=== PATIENT | male | born 1975 | race Caucasian/White ===

== ENCOUNTER 2018-05-14 11:22 | Emergency (ER) | payer OTHER, SELFPAY ==
[2018-05-14] VITALS (24 sets, daily range): BP systolic 132–186; BP diastolic 64–98; PULSE 69–110; RESP 8–16; TEMP 37; O2SAT 95–99
--- NOTE | 2018-05-14 11:34 | ED.GENADUL_ITS ---
Discharge Plan Disposition Patient Disposition: HOME Condition: Stable Discharge Details Chief Complaint: HeadInjury Clinical Impression: Concussion, Fall, Contusion of multiple sites Primary Care Provider: Unknown,Unknown ED Provider: Chantale Heredia Home Meds and New Rx's Prescriptions: Continued Vyvanse 40 mg Capsule 40 mg PO DAILY RF: 0 Discharge Instructions Instructions: Concussion (ED), Contusion in Adults (ED), Fall Prevention (ED) Additional Instructions: Please return immediately to the emergency department if you develop any new or worsening symptoms or if you become otherwise concerned. It is extremely important that you make an appointment to be seen in follow-up for this visit as soon as possible by your primary care doctor. Discharge Data Discharge Date/Time-TO BE ENTERED AT DEPARTURE: 05/14/18 14:43 Medical Decision Making Christopher Robret is a 42-year-old man with history of ADD presenting to the emergency department with altered mental status after slipping on ice and hitting his head. On exam patient is well and nontoxic appearing. He is oriented but seems to have memory changes, unclear how long he has been in [place] on vacation. Otherwise neurologically nonfocal. Neck is nontender to palpation. Concern for acute intracranial process versus concussion. Plan for CT head, C-spine. CT head and neck report is negative per radiology. On reassessment, patient complaining of pain in both clavicles, worse on the left. He reports that movement of his arms causes sharp pain in his distal clavicles bilaterally. Patient also reports some pain in his posterior left shoulder. He reports pain in the back of his head where it struck the ground. He denies any other pain. He denies any weakness. He reports that he had some tingling in bilateral forearms on the drive here, but denies any numbness or tingling at this time. On exam patient has exquisite tenderness palpation over bilateral clavicles, worse on the left, wincing with light touch to the skin. Patient has same level of exquisite tenderness to palpation diffusely over the left scapula. There are no skin signs of trauma or deformity, no crepitus in these areas. Left humerus is nontender to palpation. Patient is able to range bilateral shoulders, however pain is increased by movement of left upper extremity. Radial pulses are intact and symmetric bilaterally. Mechanism of injury atypical for clavicle fracture, however given patient level of reported pain, plan for x-ray bilateral clavicles and left scapula. Exam/history is not consistent with central cord syndrome, other cord compression, other acute emergent thoraco-abdominal or extremity trauma. X-rays bilateral clavicles and left scapula negative, interpreted by myself in conjunction with radiology. Patient reports feeling improved. Walking about the emergency department without issue. At this time no further evaluation ind icated. I had a lengthy discussion with the patient regarding return to emergency department precautions, home care, and importance of outpatient follow-up with his primary care doctor. Patient verbalizes understanding of the plan and is amenable. Medical Records Medical records reviewed: Yes I reviewed the patient's medical records. HPI General Mode of arrival: ambulatory . Date/Time Provider Initiated Documentation: 05/14/18 11:32 . Limitations to Documentation: no limitations . Information obtained by: patient, family, RN notes reviewed and old records reviewed . HPI Narrative: Christopher Robert is a 42 y/o man with history of ADD presenting to the emergency department with head injury. Patient is accompanied by his who also provides a history. They report the patient was walking on ice when he slipped backwards, hitting the back of his head on the ground. His reports that she thinks he was unconscious for a few seconds. Fall occurred approximately 30 minutes ago. reports that patient been repeating questions and not acting quite himself since the fall. Patient reporting pain in both arms and sensation of d?j? vu. He denies headache or neck pain. Had some nausea without vomiting. No visual changes. No weakness. Was previously in his usual state of health. No presyncopal type symptoms. No recent illness. Arrived in [place] for vacation yesterday. Related Data Home Medications Medication Instructions Recorded Confirmed Vyvanse 40 mg PO DAILY 05/14/18 05/14/18 Allergies Allergy/AdvReac Type Severity Reaction Status Date / Time arrow root Allergy Uncoded 05/14/18 11:36 Review of Systems Review of Systems Constitutional: denies fevers Eyes: denies eye pain, visual changes ENT: denies facial pain, dental pain, sore throat Cardiovascular: denies chest pain, edema Respiratory: denies SOB, cough GI: denies abdominal pain, vomiting, diarrhea, reports nausea : denies flank pain MSK: denies back pain, neck pain, reports bilateral shoulder pain Skin: denies rash Neuro: denies headaches, weakness PFSH Social History Smoking and Tabacco status: Never Exam Narrative Exam Narrative: Constitutional: well and [id number], pleasant, appears anxious but otherwise conversing normally HENT: head atraumatic/normocephalic/normal inspection, mucous membranes moist Eyes: conjunctiva normal, sclera normal, pupils 3mm b/l ERRLA, EOMI Neck: no stridor, normal ROM, trachea midline, no vertebral or paraspinal tenderness to palpation Chest: normal inspection, no tenderness to palpation Resp: normal work of breathing, LCTAB Cardio: normal rate, normal rhythm, no murmur appreciated GI: Abdomen soft, nontender to palpation, no distention Back: normal inspection, no rash, no bony tenderness to palpation, no skin signs of trauma Skin: warm, dry, normal color, no rash Neuro: alert, asking family members repeatedly how long they have been in [place] for but oriented, CNs2-12 intact, motor 5/5 throughout, normal tone Ext: no edema, no skin signs of trauma to the upper extremities, ranging arms normally, no deformity of the upper extremities, radial pulses intact and symmetric Psych: anxious mood, normal affect
--- NOTE | 2018-05-14 11:36 | DI.CT_ITS ---
SYMPTOMS/DIAGNOSIS: ALTERED MENTAL STATUS AND BILATERAL PAIN DOWN NECK INTO SHOULDERS S/P TRAUMA, FALL CT BRAIN: Noncontrast examination was performed. There are no priors for comparison. The moe-white matter differentiation is well maintained. The ventricles are intact. The basilar cisterns are patent. No acute infarct, intracranial hemorrhage, midline shift or mass effect is identified. The visualized paranasal sinuses are clear. The mastoid air cells are well pneumatized. The calvarium is intact. No evidence of an acute fracture is seen. There is a subcutaneous hematoma overlying the posterior left parietal bone. IMPRESSION: 1. No acute intracranial process. 2. Small left posterior parietal scalp hematoma. CT SCAN OF THE CERVICAL SPINE: Multiple contiguous axial images of the cervical spine were obtained. Sagittal and coronal reformatted images were evaluated on the [employer] workstation. There is straightening of the normal cervical lordosis. This may be due to muscle spasm of patient positioning. No acute fracture or subluxation is seen. There is no significant prevertebral soft tissue swelling. The lung apices appear clear. IMPRESSION: No acute fracture or subluxation of the cervical spine. The findings were discussed with Dr. Chantale Heredia of the Emergency Department on the date of the examination.
--- NOTE | 2018-05-14 13:08 | DI.RAD_ITS ---
SYMPTOMS/DIAGNOSIS: TRAUMA, CLAVICLE AND SCAPULA PAIN RIGHT CLAVICLE: Two views. No acute fracture or dislocation is identified. LEFT SCAPULA: Three views. No acute fracture or dislocation is identified. LEFT CLAVICLE: Two views. No acute fracture or dislocation is identified.
[2018-05-14] MEDS: Ibuprofen 600 MG TAB PO (14:26)
== END 2018-05-14 14:43 | disposition home or self-care (01) ==
LOC: ER 14:29
PROVIDERS: Emergency Provider Student in an Organized Health Care Education/Training Program
DX: S06.0X0A Concussion without loss of consciousness, initial encounter (principal); S40.012A Contusion of left shoulder, initial encounter; S40.011A Contusion of right shoulder, initial encounter; S20.222A Contusion of left back wall of thorax, initial encounter; W00.0XXA Fall on same level due to ice and snow, initial encounter
CPT/HCPCS: 99284; 70450; 72125; 73000; 73010